=== PATIENT | male | born 1950 | race Caucasian/White ===

== ENCOUNTER 2018-10-22 10:39 | Day surgery (SDC) | payer MEDICARE, OTHER ==
[~2018-10-22] VITALS: Ht 170.2 cm; Wt 85.0 kg
[~2018-10-22 10:39] MED LIST: ASPI81EC PO; ATOR40TA PO; ATOR80 PO; FAMO20 PO; Nitrostat0.4 MG SL; Toprol Xl25 MG PO
--- NOTE | 2018-10-22 14:50 | NUR ---
GENERAL DISCHARGE INSTRUCTIONS PROVIDED WITH UPDATED MEDICATION LIST. SIGNED ACKNOWLEDGEMENTS OBTAINED.
--- NOTE | 2018-10-22 15:34 | NUR ---
DISCHARGE TEACHING PERFORMED, USING SELF-HIGHLIGHTED TEXT ON PRINTED FORM TO EMPHASIZE GARCIA ITEMS RELATIVE TO MOBILITY AND INFECTION-CONTROL. QUESTIONS ANSWERED DURING TEACHING PRESENTATION, INCLUSIVE OF . SIGNED ACKNOWLEDGEMENTS OBTAINED. IV CATHETER DC'D WITH CANNULA TIP INTACT. FOLDED 2X2 GAUZE PLACED WITH COBAN OVERWRAP. DISCHARGE BY AMBULATION.
== END 2018-10-22 15:30 | disposition home or self-care (01) ==
LOC: MHTC 10:39
DX: I25.10 Atherosclerotic heart disease of native coronary artery without angina pectoris (principal); I10 Essential (primary) hypertension; Z95.5 Presence of coronary angioplasty implant and graft; E78.5 Hyperlipidemia, unspecified; I25.2 Old myocardial infarction; Z85.46 Personal history of malignant neoplasm of prostate; Z87.891 Personal history of nicotine dependence
CPT/HCPCS: 93455; 99152; 99153; C1769; C1894; J1644; J2250; J3010; J7030; Q9967

== ENCOUNTER 2020-02-11 09:15 | Day surgery (SDC) | payer MEDICARE ==
[~2020-02-11] VITALS: Ht 170.2 cm; Wt 79.3 kg
[~2020-02-11 09:15] MED LIST changes: +Coq-1030 MG PO; +LIPITOR80 MG PO
--- NOTE | 2020-02-11 10:10 | NUR ---
History, Chart, Medications and Allergies reviewed before start of procedure. Patient States Post-Procedure ride home has been arranged. PT STATES HE FINISHED HIS PREP AT 0415 THIS AM AND NPO SINCE. STATES PREP RESULTS ARE "LITTLE BROWNISH" BUT "WATERY" AND ABLE TO SEE THROUGH IN TOILET.
--- NOTE | 2020-02-11 10:42 | NUR ---
02/11/20 1042 Anneliese Hooks History, Chart, Medications and Allergies reviewed before start of procedure. Patient confirms NPO status and agrees with scheduled surgery. 3-LEAD EKG REVIEWED WITH PHYSICIAN PRIOR TO START OF PROCEDURE. MONITOR INTACT WITH CONTINUOUS PULSE OXIMETRY AND INTERMITTENT BP. PATIENT DETERMINED TO BE ASA APPROPRIATE FOR PROPOFOL SEDATION PRIOR TO START OF PROCEDURE BY DR. DEL ROSARIO.
--- NOTE | 2020-02-11 12:31 | NUR ---
DISCHARGE Patient up to Ambulate independently. Gait steady. Discharge instructions reviewed with patient. Patient verbalizes understanding. Copy given to patient to take home. Patient States Post-Procedure ride home has been arranged. PT DENIES PAIN/N/V ALERT AND READY TO GO HOME
== END 2020-02-11 22:52 | disposition home or self-care (01) ==
LOC: ORSCMMR 09:15 → ORD 10:15 → ORSCMMR 10:45 → ORD 10:45 → ORSCMMR 22:52
PROVIDERS: Internal Medicine Gastroenterology
PROC: 0DJD8ZZ Inspection of Lower Intestinal Tract, Via Natural or Artificial Opening Endoscopic (ICD-10-PCS; principal; 2020-02-11 10:45)
DX: K62.5 Hemorrhage of anus and rectum (principal); Z86.010 Personal history of colon polyps; K57.30 Diverticulosis of large intestine without perforation or abscess without bleeding; Z79.01 Long term (current) use of anticoagulants; Z79.899 Other long term (current) drug therapy
CPT/HCPCS: J2704; J7120